=== PATIENT | male | born 1990 | race Caucasian/White ===

== ENCOUNTER 2021-04-06 20:09 | Emergency (ER) | payer BC ==
[2021-04-06 20:25] VITALS: BP 132/86; PULSE 92; TEMP 98; BMI 29.9
== END 2021-04-07 00:26 | disposition home or self-care (01) ==
LOC: JER 20:09 → JERFT 20:09 → JER 04-07 00:26
DX: Z00.00 Encounter for general adult medical examination without abnormal findings (principal)
CPT/HCPCS: 36415; 82272; 99283-25